=== PATIENT | male | born 1975 | race Caucasian/White ===

== ENCOUNTER 2016-07-28 13:40 | Day surgery (SDC) | payer OTHER ==
[~2016-07-28] VITALS: Ht 185.4 cm; Wt 104.5 kg
[2016-07-28] VITALS (7 sets, daily range): BP systolic 114–124; BP diastolic 71–87; PULSE 61–77; TEMP 98.2
[2016-07-28] MEDS ORDERED: UROXATRAL10 M1 PO (14:29)
[2016-07-28] MEDS ORDERED: MOBIC15 MG PO (14:29)
== END 2016-07-28 19:37 | disposition home or self-care (01) ==
LOC: SDCO 13:40 → JCC 16:07 → SDCO 19:37
DX: R94.5 Abnormal results of liver function studies (principal); R10.11 Right upper quadrant pain; K82.8 Other specified diseases of gallbladder; R11.2 Nausea with vomiting, unspecified
CPT/HCPCS: OP; C1769; J2250; J2704; J7030; Q9967